=== PATIENT | male | born 1960 | race Caucasian/White ===

== ENCOUNTER 2018-05-15 10:06 | Observation (INO) ==
--- NOTE | 2018-05-15 10:52 | Emergency Department Report ---
Neuro HPI - General Chief Complaint: Neuro Symptoms/Deficit Stated Complaint: face numbness Time Seen by Provider: 05/15/18 10:51 Source: patient Mode of arrival: ambulatory Limitations: no limitations - History of Present Illness HPI Narrative: Patient is a 58-year-old male presents emergency room for evaluation of lower lip numbness right upper lip dribbling, slurring of speech. The symptoms all started yesterday afternoon/evening, patient noticed a little bit of numbness to his bilateral lower lip, which is now spreading to his right upper lip. Patient also told by his this morning that he was slurring his speech a little bit. Patient did try to drink water and a letter both sides of his mouth so patient decided present to the ER for evaluation Onset (ago): hour(s) - Related Data Home Medications: Home Medications Medication Instructions Recorded Confirmed Atorvastatin [Lipitor] 20 mg PO HS 05/15/18 05/15/18 Canagliflozin [Invokana] 300 mg PO DAILY 05/15/18 05/15/18 Diclofenac Sodium 75 mg PO BID 05/15/18 05/15/18 Fenofibrate Nanocrystallized 145 mg PO DAILY 05/15/18 05/15/18 [Fenofibrate] GlipiZIDE [Glucotrol] 5 mg PO BID 05/15/18 05/15/18 Lisinopril [Prinivil] 10 mg PO DAILY 05/15/18 05/15/18 Meloxicam 15 mg PO DAILY 05/15/18 05/15/18 Metformin [Glucophage] 1,000 mg PO DAILY 05/15/18 05/15/18 SUMAtriptan succinate [Imitrex] 50 mg PO PRN PRN 05/15/18 05/16/18 Tobramycin 0.3% Eye Drops [Tobrex 1 drops OP Q4H 05/15/18 05/15/18 O/S] Tramadol [Ultram] 50 mg PO Q4H PRN 05/15/18 05/15/18 Previous Rx's Medication Instructions Recorded Aspirin Chewable [ASA] 81 mg PO DAILY #30 tab.chew 05/17/18 PredniSONE [Deltasone 10 mg] 10 mg PO WB #42 tab 05/17/18 Allergies/Adverse Reactions: Allergies Allergy/AdvReac Type Severity Reaction Status Date / Time No Known Allergies Allergy Verified 05/15/18 10:11 Review of Systems Constitutional: Denies: fever, chills, weakness Eyes: Denies: eye pain, eye discharge, vision change ENT: Denies: throat pain, dental pain, hearing loss, congestion, dysphagia Cardiovascular: Denies: chest pain, palpitations, dyspnea on exertion Respiratory: Denies: cough, dyspnea, wheezes Gastrointestinal: Denies: abdominal pain, nausea, vomiting Genitourinary: Denies: dysuria, frequency Musculoskeletal: Denies: back pain Neurological: Reports: weakness. Denies: headache Psychiatric: Denies: anxiety, depression Endocrine: Denies: fatigue Hematological/Lymphatic: Denies: easy bleeding Allergic/Immunologic: Denies: facial swelling, urticaria PFSH Medical History Updates: Type II diabetes - Social History Substance use type: does not use Alcohol intake frequency: does not drink Physical Exam - General General appearance: alert, in no apparent distress - Eye Eye exam: Present: PERRL, EOMI - ENT ENT exam: Present: normal oropharynx, mucous membranes moist - Neck Neck exam: Present: full ROM, trachea midline. Absent: tenderness - Chest Chest inspection: Present: symmetric chest wall rise. Absent: tenderness - Respiratory Respiratory exam: Present: normal lung sounds bilaterally. Absent: respiratory distress, wheezes, stridor - Cardiovascular Cardiovascular exam: Present: regular rate, normal rhythm, normal heart sounds - Abdominal Exam Abdominal exam: Present: soft, normal bowel sounds. Absent: distention, tenderness - Expanded Neurological Exam Patient oriented to: Present: person, place, time Speech: Present: fluid speech Cranial nerves: Normal: EOM function (II, III, IV, ), gag reflex (IX), spinal accessory function (XI), tongue deviation (XII), Abnormal Right: facial sensation (V), facial palsy (VII) Cerebellar function: normal gait Motor strength - LUE: 5/5 Motor strength - RUE: 5/5 Motor strength - LLE: 5/5 Motor strength - RLE: 5/5 Sensory exam upper extremity: Normal: light touch Sensory exam lower extremity: Normal: light touch DTR: 2+: biceps (L), biceps (R), patellar (L), patellar (R) Coma scale eye opening: spontaneous Coma scale motor response: obeys commands Coma scale verbal response: oriented Coma scale total: 15 - Psychiatric Psychiatric exam: Present: normal affect, normal mood Course Vital Signs Temperature 98.3 F 05/15/18 10:06 Pulse Rate 87 05/15/18 10:06 Respiratory Rate 20 05/15/18 10:06 Blood Pressure 173/94 H 05/15/18 10:06 Pulse Oximetry 95 05/15/18 10:06 Temperature 98.3 F 05/15/18 10:06 Pulse Rate 87 05/15/18 10:06 Respiratory Rate 20 05/15/18 10:06 Blood Pressure 173/94 H 05/15/18 10:06 Pulse Oximetry 95 05/15/18 10:06 Neuro Symptoms/Deficit - Differential Diagnosis Likely: carpal tunnel syndrome, convulsions, delirium, subarachnoid hemorrhage, peripheral neuropathy, cerebrovascular accident, multiple sclerosis, transient cerebral ischemia - Medical Records Attestation: I reviewed the patient's medical records. - Lab Data Attestation: I reviewed the patient's lab results. Result diagrams: 05/16/18 04:33 05/16/18 04:33 - Radiology Data Attestation: I reviewed the patient's radiology results. CT head: No hemorrhage, no acute infarct no acute findings Disposition Clinical Impression: Paresthesia Disposition: 02 To [facility] Condition: Stable - Seen By: physician
[2018-05-15] MEDS ORDERED: ASPIRIN 81 MG CHEWABLE TABLET PO ONE (10:59)
[2018-05-15] MEDS: SALINE FLUSH 10ml SYRINGE IVF PRN (11:08)
--- NOTE | 2018-05-15 11:31 | CT Scan Report ---
Indication: right-sided facial droop, slurring of speech PROCEDURE: CT head/brain wo con: Encounter: Initial Comparison: None Technique: Axial CT images through the head were performed without contrast. Iterative Reconstruction dose reducing technique was utilized. FINDINGS: Probable prominent perivascular space noted on the left. The ventricles are of normal size, shape, and contour for the patient's age. The brainstem, cerebellum, and cerebral hemispheres otherwise have a normal morphology and CT attenuation. There is no evidence of midline displacement. No hemorrhage, signs of acute territorial stroke, mass effect, mass lesions, or edema is evident. The visualized portions of the skull base, midface, and calvarium demonstrate no abnormality. The paranasal sinuses are well aerated and free of significant disease. Small right mastoid effusion. Trace left mastoid fluid. IMPRESSION: No acute intracranial abnormality or hemorrhage. .
--- NOTE | 2018-05-15 13:34 | History & Physical Report ---
History of Present Illness Date: 05/15/18 Chief complaint: lip numbness HPI: Marcellus Ortiz is a 58 y/o male who noticed lower lip numbness yesterday, . It felt like he was numbed at the dentist, b/c he had problems speaking and eating. The next day, the numbness spread up his right nasolabial fold and into the maxilla. His noticed increased slurring of speech and an uneven smile. He denied any unusual extremity weakness or paresthesias - he has chronic neck pain producing chronic weakness/paresthesias to BUE. He has not had any visual changes i.e. blurred or double vision, but states that his left eye doesn't move through the full motions b/c of a surgery he had as an infant. He denies any altered taste. He denies any burning or stinging sensation, cold sores, or zoster-type rash. He denies weakness or dizziness/lightheadedness. He states that he had a cold about 3 weeks ago -- complete with productive cough, sinus drainage, sore throat, ears clogged (which they still are slightly full), and pink eye. He was treated with steroids and antibiotics, and his symptoms have almost completely resolved. He denies chest pain or palpitations. No SOA or leg swelling. He denies abdominal pain, n/v/d/c. He denies dysuria. He is trying to lose weight b/c of diabetes, which is uncontrolled. His last A1c was >9%, and his average BGM over the last week has been 260s. Since his numbness worsened, he presented to [facility] ED for evaluation. Head CT was negative. Labs were unremarkable except for hyperglycemia. Dr. Kapoor was notified and the patient was admitted to obs status. Review of Systems All systems PM: 10-point ROS was reviewed, no additional remarkable complaints except - Constitutional Constitutional: Present: as per HPI, weight loss (intentional) - EENMT Eyes: Present: as per HPI Balance: Present: as per HPI Nose: Present: as per HPI Mouth/Throat: Present: as per HPI - Cardiovascular Cardiovascular: Present: as per HPI Vascular: Present: see HPI - Respiratory Respiratory: Present: as per HPI - Gastrointestinal Gastrointestinal: Present: as per HPI - Genitourinary Genitourinary: Present: as per HPI - Musculoskeletal Musculoskeletal: Present: as per HPI. Absent: back pain - Integumentary/Breasts Integumentary: Present: as per HPI - Neurological Neurological: Present: as per HPI - Psychiatric Psychiatric: Absent: anxiety - Endocrine Endocrine: Present: as per HPI - Hematologic/Lymphatic Hematologic/Lymphatic: Absent: easy bleeding - Allergic/Immunologic Allergic/Immunologic: Absent: lip swelling Past Medical History Medical History Updates: Type II diabetes. HTN. Hyperlipidemia. Cervical spondylosis, chronic neck pain and chronic paresthesias to arms. RLS. Obesity BMI 30.8 Surgical History: Left eye surgery as an - has residual limited EOM Family History Updates: Father - unknown. Mother - healthy, currently in her 70s. Brother - DM2. 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 Medications Home Medications Medication Instructions Recorded Confirmed Type Atorvastatin [Lipitor] 20 mg PO HS 05/15/18 05/15/18 History Canagliflozin [Invokana] 300 mg PO DAILY 05/15/18 05/15/18 History Diclofenac Sodium 75 mg PO BID 05/15/18 05/15/18 History Fenofibrate Nanocrystallized 145 mg PO DAILY 05/15/18 05/15/18 History [Fenofibrate] GlipiZIDE [Glucotrol] 5 mg PO BID 05/15/18 05/15/18 History Lisinopril [Prinivil] 10 mg PO DAILY 05/15/18 05/15/18 History Meloxicam 15 mg PO DAILY 05/15/18 05/15/18 History Metformin [Glucophage] 1,000 mg PO DAILY 05/15/18 05/15/18 History SUMAtriptan succinate [Imitrex] 50 mg PO DAILY 05/15/18 05/15/18 History Tobramycin 0.3% Eye Drops [Tobrex 1 drops OP Q4H 05/15/18 05/15/18 History O/S] Tramadol [Ultram] 50 mg PO Q4H PRN 05/15/18 05/15/18 History Allergies Allergy/AdvReac Type Severity Reaction Status Date / Time No Known Allergies Allergy Verified 07/10/18 10:11 Exam Vital Signs: Temperature 97.5 F 05/15/18 12:35 Pulse Rate 74 05/15/18 13:11 Respiratory Rate 18 05/15/18 13:11 Blood Pressure 154/96 H 05/15/18 12:35 Pulse Oximetry 97 05/15/18 13:11 Height/Weight/BMI: Height 1.73 m Weight 92 kg - Constitutional Present: no acute distress, well nourished, well developed - Routine HEENT Exam Head: Present: normocephalic Eye: Present: PERRL. Absent: EOMI (patient had surgery on his left eye as an and has markedly reduced EOM - baseline per patient and spouse), normal accommodation, conjunctival icterus, scleral injection ENT: Present: mucous membranes moist, oropharynx clear - Routine Neck Exam Present: supple - Routine Respiratory Exam Present: CTA bilaterally - Routine Cardiovascular Exam Present: RRR, S1, S2, murmur (2/6 HEIDI) - Routine Abdominal Exam Present: soft, normoactive bowel sounds, non distended, non tender - Routine Extremities Exam Present: no edema, normal capillary refill - Routine Skin Exam Present: intact, dry, warm - Routine Neurological Exam Present: alert, oriented X3, moving all extremities, vision grossly intact, hearing grossly intact, facial asymmetry. Absent: CN II-XII intact (see note above on left eye; also slight right facial droop with flattening of right nasolabial fold and the corner of the right side of his mouth downward curved), sensory deficit, motor deficit, altered mental status, normal speech (slurred, difficulty with S and B sounds) - Routine Psychiatric Exam Present: normal affect, normal thought process, cooperative Results - Labs CBC & Chem 7: 05/15/18 11:10 05/15/18 11:10 - Imaging and Cardiology CT scan - head Status: image reviewed by me Additional comments: FINDINGS: Probable prominent perivascular space noted on the left. The ventricles are of normal size, shape, and contour for the patient's age. The brainstem, cerebellum, and cerebral hemispheres otherwise have a normalmorphology and CT attenuation. There is no evidence of midline displacement. No hemorrhage, signs of acute territorial stroke, mass effect, mass lesions, or edema is evident. The visualized portions of the skull base, midface, and calvarium demonstrate no abnormality. The paranasal sinuses are well aerated and free of significant disease. Small right mastoid effusion. Trace left mastoid fluid. IMPRESSION: No acute intracranial abnormality or hemorrhage. Assessment and Plan Assessment and Plan: ASSESSMENT Facial paresthesias, right facial droop, R/O stroke Type II diabetes, hgb A1c >9% HTN Hyperlipidemia Cervical spondylosis, chronic neck pain and chronic paresthesias to arms Limited EOM left eye - chronic RLS PLAN Admit, obs status under the hospitalist service. MRI brain, carotid doppler, echo, lipids. Monitor tele. Speech consult. PT/OT consults. Neuro checks. Cont lipitor. Cont HTN meds. OK to monitor sugars on own with implanted device to left arm. Care to be returned to Dr. Gonzalez at [place]. D/W Dr. Kapoor. Verbal report on Echo (DR. Muñiz) - mild MR/TR/GA. EF stable. DVT Prophylaxis: SCD's Resuscitation Status: Full Code - Physician Narrative Physician: Kun Kapoor MD Narrative: Date: 05/15/18 Time: 1739 Have independently interviewed and examined pt. Chart reviewed. Case discussed with ED physician and my [facility]IEU THERAPIST. Care plan developed with my supervision; agree with above. Presents to ED secondary to numbness of lip, onset yesterday. Difficult to speak as can't control lip. Not able to raise the angle of right lip. No swelling to mouth or throat. No new neurological symptoms. Had sinus infection several weeks ago, resolving. Breathing stable. Slight nausea as has not eaten today. Lungs: decreased, no distress CV: regular AB: soft nt/nd Neuro: decreased ability to raise right angle of lip. Plan: OBS. ECHO and Doppler negative. MRI showing no acute changes. PT/OT without functional limitations. Speech reports no swallow deficits. 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 Hospital Course Summary Disclaimer: The visit summary below is not to be considered part of the above Progress Note. Hospital Course: 05/15/18 Admit, obs status under the hospitalist service. MRI brain, carotid doppler, echo, lipids. Monitor tele. Speech consult. PT/OT consults. Neuro checks. Cont lipitor. Cont HTN meds. OK to monitor sugars on own with implanted device to left arm.
--- NOTE | 2018-05-15 13:39 | Ultrasound Report ---
Indication: Lip numbness, facial weakness PROCEDURE: US carotid doppler BI: TECHNIQUE: Grayscale, color and duplex Doppler imaging was performed of the carotid systems bilaterally. Velocities in cm/sec - validated velocity measurements with angiographic measurements, velocity criteria are extrapolated from diameter data as defined by the Society of Radiologists in Ultrasound Consensus Conference Radiology 2003; 229;340-346. RIGHT: PSV ICA 94 EDV ICA 28 PSV CCA 101 EDV CCA 21 SVR 0.9 PSV ECA 103 ICA Diameter reduction <20% (0.8-1.0)% LEFT: PSV ICA 77 EDV ICA 19 PSV CCA 78 EDV CCA 17 SVR 1.0 PSV ECA 64 ICA Diameter reduction 10%-30% (1.0-1.2 PSV<110)% The right vertebral artery is patent with cephalic flow. The left vertebral artery is patent with cephalic flow. No significant atherosclerotic plaque. No velocity elevation. IMPRESSION: No hemodynamically significant carotid stenosis. .
[2018-05-15] MEDS ORDERED: TRAMADOL 50 MG TABLET PO PRN (13:50)
--- NOTE | 2018-05-15 14:46 | Magnetic Resonance Report ---
Indication: facial numbess/weakness - r/o stroke PROCEDURE: MR head/brain wo con: Encounter: Initial Comparisons: Head CT from earlier today Technique: Multiplanar, multisequence, MR imaging of the head without contrast was acquired. FINDINGS: Motion artifact. The ventricles are of normal size, shape, and contour for the patient's age. No gross white matter disease. The brain stem, cerebellum, and cerebral hemispheres otherwise have a normal morphologic appearance as well as MR signal intensity on all pulse sequences. There are no areas of restricted diffusion on diffusion weighted imaging to suggest an acute infarct. There is no evidence of an intracranial mass lesion, intracranial hemorrhage, or hydrocephalus. Small mastoid effusions. IMPRESSION: Limited exam due to motion artifact. No acute intracranial hemorrhage or acute stroke. .
[2018-05-15] MEDS: 1/2 NS 1,000 ML IV SCH (14:54)
--- NOTE | 2018-05-15 16:34 | Echocardiogram ---
DATE OF PROCEDURE May 15, 2018 This is a two-dimensional echo with spectral Doppler, color-flow and M-mode. It was obtained in a patient with possible TIA. Left atrial dimension is normal. Left ventricular end-diastolic dimension is normal. Left ventricular wall thickness is normal. LV systolic function is normal with ejection fraction of 65%. Right atrium is normal. Right ventricle is normal. Aortic root dimension is normal. Grossly there is no intracardiac thrombus or mass. Mitral valve is morphologically normal with trace of mitral regurgitation. Aortic valve is a trileaflet structure with mild fibrocalcific changes with no stenosis or insufficiency. Tricuspid valve shows mild tricuspid regurgitation with normal estimated pulmonary artery systolic pressure of 25. Pulmonary valve shows trace of pulmonary insufficiency. There is no pericardial effusion. IMPRESSION 1. Grossly no intracardiac thrombus or mass. 2. Normal LV systolic function with ejection fraction of about 65%. 3. Trace of mitral regurgitation. 4. Aortic sclerosis. 5. Mild tricuspid regurgitation with normal estimated pulmonary artery systolic pressure of 25. 6. Trace of pulmonary insufficiency. MTDD
[2018-05-15] MEDS ORDERED: METHYLPREDNISOLONE SOD SUCC 125mg/2ml INJECTION IVP ONE (17:39)
[2018-05-15] MEDS: METHYLPREDNISOLONE SOD SUCC 125mg/2ml INJECTION IVP SCH (23:50)
[2018-05-15] MEDS: ATORVASTATIN 20 MG TABLET PO SCH (23:50)
[2018-05-16] MEDS: METHYLPREDNISOLONE SOD SUCC 125mg/2ml INJECTION IVP SCH ×2 (03:09→08:04)
[2018-05-16] MEDS: 1/2 NS 1,000 ML IV SCH ×2 (04:46→22:58)
[2018-05-16] MEDS: CANAGLIFLOZIN 100mg TABLET PO SCH (08:03)
[2018-05-16] MEDS: FENOFIBRATE 145 MG TABLET PO SCH (08:04)
[2018-05-16] MEDS: METFORMIN 1,000 MG TABLET PO SCH (08:04)
[2018-05-16] MEDS: MELOXICAM 15 MG TABLET PO SCH (08:04)
[2018-05-16] MEDS: LISINOPRIL 10 MG TABLET PO SCH (08:04)
[2018-05-16] MEDS: SALINE FLUSH 10ml SYRINGE IVF PRN ×2 (08:05→18:38)
--- NOTE | 2018-05-16 11:15 | Progress Note ---
- Date 05/16/18 Subjective: Marcellus is seen this morning in follow up. is at the bedside and reports that his speech slurring has been getting worse as the morning goes on. Marcellus complains of some mandible "soreness" , he attributes this to holding a straw to drink and using different jaw muscles. He is noted to have left sub-mandible swelling. Continues to have lower lip tingling. Tolerating po intake without difficulty. Objective Vital signs: Temperature 98.0 F 05/16/18 08:00 Pulse Rate 93 05/16/18 08:00 Respiratory Rate 24 05/16/18 08:00 Blood Pressure 157/90 H 05/16/18 08:00 Pulse Oximetry 93 05/16/18 08:00 Height/Weight/BMI: Height 1.73 m Weight 87.5 kg Body Mass Index 30.0 - Constitutional Present: no acute distress, well nourished, well developed - Routine HEENT Exam Eye: Present: EOMI ENT: Present: mucous membranes moist, dentition normal - Routine Respiratory Exam Present: CTA bilaterally. Absent: wheezes - Routine Cardiovascular Exam Present: RRR, S1, S2. Absent: murmur - Routine Abdominal Exam Present: soft, normoactive bowel sounds, non distended. Absent: tenderness - Routine Extremities Exam Present: normal capillary refill - Routine Skin Exam Present: dry, warm - Routine Neurological Exam Present: alert, oriented X3, CN II-XII intact - Routine Lymphatic Exam Lymphatic: Absent: adenopathy - Routine Psychiatric Exam Present: normal affect Results - Labs CBC & Chem 7: 05/16/18 04:33 05/16/18 04:33 Assessment and Plan Assessment and Plan: ASSESSMENT Facial paresthesias, right facial droop, R/O stroke Brown's palsy Type II diabetes, hgb A1c >9% HTN Hyperlipidemia Cervical spondylosis, chronic neck pain and chronic paresthesias to arms Limited EOM left eye - chronic RLS 05/16/18 Continued facial droop with slurred speech. ?bells palsy Continue with IV steroids Working with speech therapy- working on swallowing and speech Consult Dr Krueger for neurologist evaluation and recommendations Monitor vitals and continue on Lisinopril Continue with metformin, will add SSI given hyperglycemia. Likely secondary to steroids use. DVT Prophylaxis: SCD's Resuscitation Status: Full Code - Time spent with patient Time with patient PN: 25 minutes - Physician Narrative Physician: Tristan Antwon, MD Narrative: Date: 05/16/18 Time: 1110 Have independently interviewed and examined pt. Chart reviewed. Case discussed with CM, Neurology, and my [employer]. Care plan developed with my supervision; agree with above. Improving. Still having paraesthesia to lip and weakness on right face, but no other neurological symptoms. Swallowing well. Breathing well. Has been able to ambulate well in halls. Blood sugars with elevation due to steroids. Lungs: clear CV: regular AB: soft nt MSE: awake alert Plan: Can stop IVF as taking oral well. Discussed with neurology-stoke much less likely. 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 Recommends Prednisone 20mg daily for 2 weeks, then decreasing to 10mg daily for 2 weeks. Discussed with patient how this will elevate blood sugars. Patient reluctant to have insulin as he fears insulin use will lead him to become dependent on insulin which he does not want. Patient wanting to go home tomorrow if continues to do well. Will continue with OBS status. Hospital Course Summary Disclaimer: The visit summary below is not to be considered part of the above Progress Note. Hospital Course: 05/15/18 Admit, obs status under the hospitalist service. MRI brain, carotid Doppler, echo, lipids. Monitor tele. Speech consult. PT/OT consults. Neuro checks. Cont Lipitor. Cont HTN meds. OK to monitor sugars on own with implanted device to left arm. 05/16/18 Continued facial droop with slurred speech. ? Alpha palsy Continue with IV steroids Working with speech therapy- working on swallowing and speech Consult Dr Krueger for neurologist evaluation and recommendations Monitor vitals and continue on Lisinopril Continue with metformin, will add SSI given hyperglycemia. Likely secondary to steroids use. Dr Krueger's evaluation: ASSESSMENT 1. 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 This can be a complication of viral disease or it can be associated with diabetic neuropathy. 2. Stroke is less likely in this clinical setting. Although the patient has very high risk for stroke including hyperlipidemia, diabetes and hypertension. PLAN 1. Continue steroids for Brown's palsy. This can be changed to oral prednisone 20 mg p.o. q.d. for two weeks then 10 mg p.o. q.d. for two2 weeks and then stop. 2. The patient may benefit from having aspirin 81-325 mg p.o. q.d. for stroke prevention. 3. Optimize treatment for diabetes, hypertension and hyperlipidemia. 3. Provide good fluid intake. 4. Consider speech and physical therapy if needed to improve facial weakness and dysarthria problem.
[2018-05-16] MEDS ORDERED: INSULIN ASPART 100unit/ml INJECTION SQ PRN (11:30)
--- NOTE | 2018-05-16 14:30 | Consultation ---
DATE OF CONSULTATION 05/16/[address] Kapoor PATIENT'S CHIEF COMPLAINT Right facial weakness and numbness. HISTORY OF PRESENT ILLNESS The patient is a 58-year-old male with history of diabetes mellitus, hypertension, hyperlipidemia and chronic neck pain. The patient presented with insidious onset right lower lip numbness and abnormal feeling. This progressed into worse weakness affecting mainly the right side of the face above and below the eye. This has been associated with some milder numbness in that same area. The patient's symptoms slowly progressed initially and it has been stable since then. The patient said that he had some sore throat and bilateral ear pain two weeks prior to this event. His symptoms have improved since then. He had no facial rash and no history of shingles in the face. The patient was admitted to [facility]. He had a workup for stroke including MRI of the brain, CT of the head and carotid Doppler which showed no acute abnormalities and no vascular disease. Patient's lab showed extremely high cholesterol and triglyceride level. His sugar levels have been very high. The patient was started on Solu-Medrol for potential right Brown's palsy. His symptoms have been stable since then. The patient is still having difficulty swallowing and feeling the food upon eating. He also has some significant dysarthria. He also complains of difficulty closing his right eye completely. Patient's diabetes is usually poorly controlled with medication. His last A1c was in the 9.5 range. The patient denies having any new weakness or numbness in the extremities. He has had occasional numbness in the arms associated with his neck problem. PHYSICAL EXAMINATION On physical examination the patient was awake, alert, oriented x3. Pupils were round, reactive and equal. Extraocular muscles were abnormal and the patient has a lazy left eye. He cannot abduct his left eye since . Facial motor was weak on the right compared to the left, in the 3/5 range. Sensory examination was slightly limited on the right compared to the left. Some of that can be related to the weakness of the muscles. Speech was slow and dysarthric. His motor examination in the extremities was 5-/5, in the lower extremities was 5/5. Sensory examination in the extremities was symmetrical to light touch and pinprick sensation. Deep tendon reflexes were 2-/4. Plantar reflexes were in flexion bilaterally. Coordination for [id number] was normal bilaterally. ASSESSMENT 1. 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 This can be a complication of viral disease or it can be associated with diabetic neuropathy. 2. Stroke is less likely in this clinical setting. Although the patient has very high risk for stroke including hyperlipidemia, diabetes and hypertension. PLAN 1. Continue steroids for Brown's palsy. This can be changed to oral prednisone 20 mg p.o. q.d. for two weeks then 10 mg p.o. q.d. for two2 weeks and then stop. 2. The patient may benefit from having aspirin 81-325 mg p.o. q.d. for stroke prevention. 3. Optimize treatment for diabetes, hypertension and hyperlipidemia. 3. Provide good fluid intake. 4. Consider speech and physical therapy if needed to improve facial weakness and dysarthria problem. MTDD
[2018-05-16] MEDS ORDERED: SUMATRIPTAN 25 MG TABLET PO PRN (21:07)
[2018-05-16] MEDS: ATORVASTATIN 20 MG TABLET PO SCH (21:28)
[2018-05-17 08:09] VITALS: BP 116/84; RESP 14; TEMP 97.7; O2SAT 96
[2018-05-17] MEDS: FENOFIBRATE 145 MG TABLET PO SCH (09:49)
[2018-05-17] MEDS: LISINOPRIL 10 MG TABLET PO SCH (09:49)
[2018-05-17] MEDS: CANAGLIFLOZIN 100mg TABLET PO SCH (09:49)
[2018-05-17] MEDS: METFORMIN 1,000 MG TABLET PO SCH (09:49)
[2018-05-17] MEDS: MELOXICAM 15 MG TABLET PO SCH (09:49)
[2018-05-17 10:10] VITALS: PULSE 64
--- NOTE | 2018-05-17 13:16 | Discharge Summary ---
Discharge Information Date of admission: 05/15/18 11:50 Anticipated date of discharge: 05/17/18 Attending Physician: Kun Kapoor MD Primary care physician: Chan Jerry MD Consults: Dr Krueger- Neurologist Discharge diagnosis Facial paresthesias, right facial droop, R/O stroke Brown's palsy Associated conditions and complications Type II diabetes, hgb A1c >9% HTN Hyperlipidemia Cervical spondylosis, chronic neck pain and chronic paresthesias to arms Limited EOM left eye - chronic RLS - Procedures Procedures: None - Laboratory Labs: 05/16/18 04:33 05/16/18 04:33 - Microbiology None - Radiology Radiology: 05/15/18 CT head-No acute intracranial abnormality or hemorrhage. MRI brain- Limited exam due to motion artifact. No acute intracranial hemorrhage or acute stroke. Carotid Doppler-No hemodynamically significant carotid stenosis. Echocardiogram 1. Grossly no intracardiac thrombus or mass. 2. Normal LV systolic function with ejection fraction of about 65%. 3. Trace of mitral regurgitation. 4. Aortic sclerosis. 5. Mild tricuspid regurgitation with normal estimated pulmonary artery systolic pressure of 25. 6. Trace of pulmonary insufficiency. - Pathology N/A History of Present Illness HPI: Marcellus Ortiz is a 58 y/o male who noticed lower lip numbness yesterday, . It felt like he was numbed at the dentist, b/c he had problems speaking and eating. The next day, the numbness spread up his right nasolabial fold and into the maxilla. His noticed increased slurring of speech and an uneven smile. He denied any unusual extremity weakness or paresthesias - he has chronic neck pain producing chronic weakness/paresthesias to BUE. He has not had any visual changes i.e. blurred or double vision, but states that his left eye doesn't move through the full motions b/c of a surgery he had as an . He denies any altered taste. He denies any burning or stinging sensation, cold sores, or zoster-type rash. He denies weakness or dizziness/lightheadedness. He states that he had a cold about 3 weeks ago -- complete with productive cough, sinus drainage, sore throat, ears clogged (which they still are slightly full), and pink eye. He was treated with steroids and antibiotics, and his symptoms have almost completely resolved. He denies chest pain or palpitations. No SOA or leg swelling. He denies abdominal pain, n/v/d/c. He denies dysuria. He is trying to lose weight b/c of diabetes, which is uncontrolled. His last A1c was >9%, and his average BGM over the last week has been 260s. Since his numbness worsened, he presented to [facility] for evaluation. Head CT was negative. Labs were unremarkable except for hyperglycemia. Dr. Kapoor was notified and the patient was admitted to obs status. Objective Vital signs: Temperature 97.7 F 05/17/18 08:08 Pulse Rate 64 05/17/18 08:26 Respiratory Rate 14 05/17/18 08:08 Blood Pressure 116/84 05/17/18 08:08 Pulse Oximetry 96 05/17/18 08:08 Height/Weight/BMI: Height 1.73 m Weight 89.1 kg Body Mass Index 30.0 - Constitutional Present: no acute distress, well nourished, well developed - Routine HEENT Exam Eye: Present: EOMI ENT: Present: mucous membranes moist, dentition normal - Routine Respiratory Exam Present: CTA bilaterally. Absent: wheezes - Routine Cardiovascular Exam Present: RRR, S1, S2. Absent: murmur - Routine Abdominal Exam Present: soft, normoactive bowel sounds, non distended. Absent: tenderness - Routine Extremities Exam Present: normal capillary refill - Routine Skin Exam Present: dry, warm - Routine Neurological Exam Present: alert, oriented X3, facial asymmetry Continued slurred speech with facial palsy - Routine Lymphatic Exam Lymphatic: Absent: adenopathy - Routine Psychiatric Exam Present: normal affect, normal thought process, cooperative Hospital Course This is a general summary of the patient's hospital course. For more details refer to the complete medical record. Hospital course: 05/15/18 Admit, obs status under the hospitalist service. MRI brain, carotid Doppler, echo, lipids. Monitor tele. Speech consult. PT/OT consults. Neuro checks. Cont Lipitor. Cont HTN meds. OK to monitor sugars on own with implanted device to left arm. 05/16/18 Continued facial droop with slurred speech. ? [place] palsy Continue with IV steroids Working with speech therapy- working on swallowing and speech Consult Dr Krueger for neurologist evaluation and recommendations Monitor vitals and continue on Lisinopril Continue with metformin, will add SSI given hyperglycemia. Likely secondary to steroids use. Dr Krueger's evaluation: 05/16/18 ASSESSMENT 1. 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 This can be a complication of viral disease or it can be associated with diabetic neuropathy. 2. Stroke is less likely in this clinical setting. Although the patient has very high risk for stroke including hyperlipidemia, diabetes and hypertension. PLAN 1. Continue steroids for Brown's palsy. This can be changed to oral prednisone 20 mg p.o. q.d. for two weeks then 10 mg p.o. q.d. for two2 weeks and then stop. 2. The patient may benefit from having aspirin 81-325 mg p.o. q.d. for stroke prevention. 3. Optimize treatment for diabetes, hypertension and hyperlipidemia. 3. Provide good fluid intake. 4. Consider speech and physical therapy if needed to improve facial weakness and dysarthria problem. 05/17/18- Discharge Patient is seen and examined prior to discharge. Her, oriented and pleasant. States that he is feeling about the same. He does report that the TMJ jaw discomfort has resolved 30 continues to have some slurred speech with ongoing palsy. We discussed discharge plan. Patient will be placed on aspirin 81 milligrams daily as recommended by Dr. Krueger as well as a prednisone taper. Patient is to start 20 milligrams daily 2 weeks, then decrease to 10 milligrams daily 2 weeks, then stop. Patient is recommended to follow-up with primary care provider , Dr. Jerry in 1 week. At that time it is recommended that they discuss if patient would benefit from continued speech therapy. Patient and verbalize understanding. Patient discharged in stable condition. Time spent with patient: discharge greater than 30 minutes Resuscitation Status: Full Code Discharge Plan - Discharge Disposition Discharge Date: 05/17/18 Disposition: 01 Discharged Home, Self-Care *Condition: Stable Reason For Visit (Visit label in EMR): lip numbness, facial weakness - Discharge Medications *Discharge Medications: New PredniSONE [Deltasone 10 mg] 10 mg PO WB #42 tab Aspirin Chewable [ASA] 81 mg PO DAILY #30 tab.chew Continue Diclofenac Sodium 75 mg PO BID Lisinopril [Prinivil] 10 mg PO DAILY GlipiZIDE [Glucotrol] 5 mg PO BID Meloxicam 15 mg PO DAILY Canagliflozin [Invokana] 300 mg PO DAILY Atorvastatin [Lipitor] 20 mg PO HS Tramadol [Ultram] 50 mg PO Q4H PRN PRN Reason: Pain Metformin [Glucophage] 1,000 mg PO DAILY Tobramycin 0.3% Eye Drops [Tobrex O/S] 1 drops OP Q4H SUMAtriptan succinate [Imitrex] 50 mg PO PRN PRN PRN Reason: migraines Fenofibrate Nanocrystallized [Fenofibrate] 145 mg PO DAILY - Discharge Packet/Instructions *Diet: ADA Carb consis diet *Activity: Activity as tolerated *Pain Management/Treatment: Tylenol or Diclofenac as needed for pain *Wound Care: N/A Additional Instructions: Take Prednisone 20 mg daily for 2 weeks. then Prednisone 10 mg daily for 2 weeks- Then stop. Start taking ASA 81 mg daily. Follow up with Dr Jerry in 1 week. Can discuss possibility of outpatient speech theapry *Expected Signs/Symptoms: Hopeful for improvement in facial numbness *Notify Physician if: Symptoms worsen, Confusion or other changes *During Business Hours Contact: PCP Dr Jerry *After Business Hours Contact: Page oncall Dr for Dr Jerry or present to the ER *Pending Lab/Results: No Pending Lab - Referrals/Follow Up *Referrals/Follow Up: Chan Jeryr MD [Primary Care Provider] - (APPOINTMENT ON 05/[address]ERRY.) - Patient Handouts Patient Handouts: Brown Palsy (DC) - Dismissal Complete Discharge Instructions are:: Complete Physician Narrative - Narrative Physician: Kun Kapoor MD Attestation Narrative: Date: 05/17/18 Time: 1313 Patient medically stable for discharge. Agree with above. Patient discharge prior to my visit.
[2018-05-17] MEDS ORDERED: PredniSONE 20 MG TABLET PO SCH (13:35)
== END 2018-05-17 12:25 | disposition home or self-care (01) ==
LOC: EDHOLD 10:06 → ED 10:06 → MED 12:17
PROVIDERS: ADMIT Hospitalist; ATTEND Hospitalist